=== PATIENT | female | born 1985 | race Hispanic/Latino ===

== ENCOUNTER 2017-06-19 16:55 | Emergency (ER) | payer OTHER ==
[2017-06-19 17:06] VITALS: BP 116/80; PULSE 68; RESP 18; TEMP 98.3; O2SAT 99
--- NOTE | 2017-06-19 18:07 | ED PDOC ---
Lower Extremity Pain/Injury Time Seen by Provider: 06/19/17 17:09 Chief Complaint (Nursing): Lower Extremity Problem/Injury Chief Complaint (Provider): Left Knee Injury History Per: Patient History/Exam Limitations: no limitations Onset/Duration Of Symptoms: Days (2x) Current Symptoms Are (Timing): Still Present Additional Complaint(s): 32 year old female presents to the ED complaining of left knee pain. Reports she fell two days ago in a fast food restaurant parking lot, striking her left knee. Patient feels pain, swelling, and bruising with a "locking sensation" on left knee. Otherwise: (-) numbness, (-) decreased range of motion, (-) any other complaints. PMD: Dayami Hicks - Knee Description Of Injury: Fell Past Medical History Reviewed: Historical Data, Nursing Documentation, Vital Signs Vital Signs: Last Vital Signs Temp 98.3 F 06/19/17 17:03 Pulse 68 06/19/17 17:03 Resp 18 06/19/17 17:03 BP 116/80 06/19/17 17:03 Pulse Ox 99 06/19/17 17:03 - Medical History PMH: No Chronic Diseases - Family History Family History: States: No Known Family Hx - Social History Current smoker - smoking cessation education provided: No Alcohol: None Drugs: Denies - Allergies Allergies/Adverse Reactions: Allergies Allergy/AdvReac Type Severity Reaction Status Date / Time latex Allergy RASH Verified 06/19/17 17:02 Sulfa (Sulfonamide Allergy RASH Verified 06/19/17 17:02 Antibiotics) Review of Systems ROS Statement: Except As Marked, All Systems Reviewed And Found Negative Musculoskeletal: Positive for: Other (left knee pain) Skin: Positive for: Bruising (left knee) Neurological: Negative for: Numbness, Other (decreased range of motion) Physical Exam - Physical Exam Comments: GENERAL APPEARANCE: Patient is awake, alert, oriented x 3, in no acute distress. SKIN: Warm, dry; (-) cyanosis. LOWER EXTREMITY: (+) abrasion to anterior left knee with ecchymosis, tenderness , and swelling to palpation, (-) knee effusion, (-) laxity on varus and valgus stress test, (-) no laxity on anterior and posterior drawer test, (+) limited ROM secondary to pain. CARDIOVASCULAR: (+) distal pulse. NEUROLOGIC: (+) distal sensation. - ECG O2 Sat by Pulse Oximetry: 99 (RA) Pulse Ox Interpretation: Normal Medical Decision Making Medical Decision Making: Time: 1739 Initial Plan: --Motrin 600mg --POC Urine Test --Knee Left 2 Views [RAD] --Reevaluation XR L Knee: mild soft tissue edema, no fracture, no dislocation, as read by PA. Discussed with patient and diagnosis of left knee contusion. Patient advised to rest, ice, and elevate knee. Harvinder wrap applied and crutches provided. Advised to follow up with primary care physician in 1-2 days without fail. Advised to take otc nsaids. Return to the emergency room at any time for any new or worsening symptoms. Patient states she fully agrees with and understands discharge instructions. States that she agrees with the plan and disposition. Verbalized and repeated discharge instructions and plan. I have given the patient opportunity to ask any additional questions. Scribe Attestation: Documented by Mayelin Gil, acting as a scribe for Melissa Barker PA-C Provider Scribe Attestation: All medical record entries made by the Scribe were at my direction and personally dictated by me. I have reviewed the chart and agree that the record accurately reflects my personal performance of the history, physical exam, medical decision making, and the department course for this patient. I have also personally directed, reviewed, and agree with the discharge instructions and disposition. Disposition - Clinical Impression Clinical Impression: Contusion of knee, left - Patient ED Disposition Is Patient to be Admitted: No Counseled Patient/Family Regarding: Diagnosis, Need For Followup, Rx Given - Disposition Referrals: Dayami Hicks MD [Primary Care Provider] - Disposition: Routine/Home Disposition Time: 18:30 Condition: STABLE Additional Instructions: Thank you for letting us take care of you today. You were treated for left knee contusion. The emergency medical care you received today was directed at your acute symptoms. Rest, ice, elevate your knee, wear Harvinder wrap for comfort. Take [id number] ibuprofen as needed for pain. It may take several days for your symptoms to resolve. Return to the Emergency Department if your symptoms worsen, do not improve, or if you have any other problems. Please contact your doctor in 2 days for re-evaluation and follow up. Bring any paperwork you were given at discharge with you along with any medications you are taking to your follow up visit. Our treatment cannot replace ongoing medical care by a primary care provider (PCP) outside of the emergency department. Thank you for allowing the [facility] team to be part of your care today. If you had an X-Ray : A Radiologist will review the ED reading if any change in treatment is needed we will contact you. Instructions: Contusion (DC) Forms: [employer] (Hebrew), [facility] ED School/Work Excuse - PA / OIL FIELD ROUSTABOUT / Resident Statement MD/DO has reviewed & agrees with the documentation as recorded.
--- NOTE | 2017-06-20 10:04 | RAD ---
PROCEDURE: Left Knee Radiographs. HISTORY: Pain. COMPARISON: None. FINDINGS: BONES: Bone alignment and mineralization are normal. There is no acute displaced fracture or bone destruction. JOINTS: Normal. JOINT EFFUSION: None. OTHER FINDINGS: None. IMPRESSION: No acute fracture or dislocation.
== END 2017-06-19 18:55 | disposition home or self-care (01) ==
LOC: H.ER 16:55
DX: S80.02XA Contusion of left knee, initial encounter (principal); W19.XXXA Unspecified fall, initial encounter; Y92.481 Parking lot as the place of occurrence of the external cause